=== PATIENT | male | born 1970 | race Caucasian/White ===

== ENCOUNTER 2017-07-19 20:41 | Emergency (ER) | payer MEDICAID, SELFPAY ==
--- NOTE | 2017-07-19 22:44 | EDM.PDOC ---
ED HPI GENERAL MEDICAL PROBLEM - General Chief Complaint: Eye Problems Stated Complaint: OBJECT IN LEFT EYE Time Seen by Provider: 07/19/17 22:10 Source of Information: Reports: Patient History Limitations: Reports: No Limitations - History of Present Illness INITIAL COMMENTS - FREE TEXT/NARRATIVE: c/o L eye pain at 6:15 pt using a power saw to cut lumbar at home, a 1' length of wood came up and struck him in the L eye, he has had pain in his L eye with blinking, he has trouble opening his eye d/t to pain, not able to do a vision screen as he did not want to open eye, able to see okay when he does briefly open his eye he thinks that there is a f.b. in his eye, did have a "piece of wood" in his eye once in past not using correction from [employer], lived locally x 3y, here with s.o. 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 left eye/nose Pain Score (Numeric/FACES): 4 - Related Data Allergies Allergy/AdvReac Type Severity Reaction Status Date / Time No Known Allergies Allergy Verified 07/19/17 22:10 Home Meds: Home Meds NK [No Known Home Meds] 06/28/14 [History] Social & Family History - Tobacco Use Smoking Status *Q: Current Every Day Smoker Years of Tobacco use: 34 - Alcohol Use Days Per Week of Alcohol Use: 2 Number of Drinks Per Day: 3 Total Drinks Per Week: 6 - Recreational Drug Use Recreational Drug Use: No ED ROS GENERAL - Review of Systems Review Of Systems: See Below Constitutional: Reports: No Symptoms HEENT: Reports: Eye Pain Respiratory: Reports: No Symptoms Cardiovascular: Reports: No Symptoms Endocrine: Reports: No Symptoms GI/Abdominal: Reports: No Symptoms : Reports: No Symptoms Musculoskeletal: Reports: No Symptoms Skin: Reports: No Symptoms Neurological: Reports: No Symptoms Psychiatric: Reports: No Symptoms Hematologic/Lymphatic: Reports: No Symptoms Immunologic: Reports: No Symptoms ED EXAM GENERAL W FULL EYE - Physical Exam Exam: See Below Exam Limited By: No Limitations General Appearance: Alert, WD/WN, Mild Distress Eye Exam: Left Eye: Other (no f.b. in inferior sulcus or on inverting upper eyelid, no ecchymosis, no hyperemia, no hyphema, no bleeding, orbit intact, pupils 4/4 mm and reactive b/l, tetracaine instilled, with flourscein and black light there was a 3 x 4 mm bright orange defect at 6 o'clock near the limbus, no f.b. on cornea, eye patch applied) Course - Vital Signs Last Recorded V/S: Last Vital Signs Temp 36.9 C 07/19/17 21:05 Pulse 84 07/19/17 21:05 Resp 16 07/19/17 21:05 BP 131/79 07/19/17 21:05 Pulse Ox 96 07/19/17 21:05 Departure - Departure Time of Disposition: 22:44 Disposition: Home, Self-Care 01 Condition: Good Clinical Impression: Corneal abrasion - Discharge Information Instructions: Corneal Abrasion Referrals: PCP,None [Primary Care Provider] - Additional Instructions: Leave eye patch in place for [address] or use power tools or climb ladders for 32 hours. If eye is not 100% better in 32 hours (no pain, normal vision), then see an interior design professional in [place] in their office (or go to an Emergency Department in [place] if necessary). Call your Physician or Return to Emergency Department if: * Your condition worsens in any way. * You develop fever greater than 100.4. * You have pain that is not controlled with medications.
[2017-07-19] MEDS ORDERED: Ibuprofen 800 MG Tab PO ONE (22:57)
== END 2017-07-19 22:55 | disposition home or self-care (01) ==
LOC: FB.ED 20:41
DX: S05.02XA Injury of conjunctiva and corneal abrasion without foreign body, left eye, initial encounter (principal); F17.210 Nicotine dependence, cigarettes, uncomplicated; W22.8XXA Striking against or struck by other objects, initial encounter
CPT/HCPCS: 99283; A9270